=== PATIENT | female | born 1990 ===

== ENCOUNTER 2021-11-22 09:19 | Outpatient (CLI) | payer OTHER | END 2021-11-22 10:15 | disposition home or self-care (01) | LOC: EDBD 09:19 → PRENATAL 09:19 | PROVIDERS: ATTEND Obstetrics & Gynecology Maternal & Fetal Medicine | DX: O36.80X0 Pregnancy with inconclusive fetal viability, not applicable or unspecified (principal) ==

== ENCOUNTER 2022-01-16 10:44 | Outpatient (CLI) | payer OTHER | END 2022-01-16 12:35 | disposition home or self-care (01) | LOC: PRENATAL 10:44 | PROVIDERS: ATTEND Obstetrics & Gynecology Maternal & Fetal Medicine | DX: O35.0XX0 Maternal care for (suspected) central nervous system malformation in fetus, not applicable or unspecified (principal); O35.3XX0 Maternal care for (suspected) damage to fetus from viral disease in mother, not applicable or unspecified; O99.891 Other specified diseases and conditions complicating pregnancy; O34.10 Maternal care for benign tumor of corpus uteri, unspecified trimester; Z3A.20 20 weeks gestation of pregnancy ==

== ENCOUNTER 2022-05-19 07:46 | Inpatient (IN) | payer OTHER ==
[~2022-05-19] VITALS: Ht 149.9 cm; Wt 2.7 kg
[2022-05-19] MEDS ORDERED: SYNTHROID75 MCG (10:17)
[2022-05-19] MEDS ORDERED: PRENATAL TABLE1 EAC3 (10:17)
== END 2022-05-22 12:07 | disposition home or self-care (01) | DRG 785 ==
LOC: LDR 07:46 → OB/GYN 20:13
PROVIDERS: ADMIT Obstetrics & Gynecology; ATTEND Obstetrics & Gynecology
PROC: 0UB70ZZ Excision of Bilateral Fallopian Tubes, Open Approach (ICD-10-PCS; 2022-05-19)
PROC: 4A1HXCZ Monitoring of Products of Conception, Cardiac Rate, External Approach (ICD-10-PCS; 2022-05-19)
PROC: 10D00Z1 Extraction of Products of Conception, Low, Open Approach (ICD-10-PCS; principal; 2022-05-19 18:00)
DX: O69.2XX0 Labor and delivery complicated by other cord entanglement, with compression, not applicable or unspecified (principal); O36.8130 Decreased fetal movements, third trimester, not applicable or unspecified; O99.820 Streptococcus B carrier state complicating pregnancy; Z3A.38 38 weeks gestation of pregnancy; Z37.0 Single live birth; Z20.822 Contact with and (suspected) exposure to COVID-19; Z30.2 Encounter for sterilization

== ENCOUNTER 2023-05-26 08:29 | Emergency (ER) | payer OTHER ==
[~2023-05-26] VITALS: Ht 149.9 cm; Wt 61.2 kg
[~2023-05-26 08:29] MED LIST: PRENATAL TABLE1 EAC3; SYNTHROID75 MCG
== END 2023-05-26 17:53 | disposition home or self-care (01) ==
LOC: ER 08:29
PROVIDERS: Emergency Medicine
DX: R10.9 Unspecified abdominal pain (principal); Z20.822 Contact with and (suspected) exposure to COVID-19; N83.291 Other ovarian cyst, right side